=== PATIENT | female | born 1985 | race African-American/Black ===

== ENCOUNTER → 2019-09-01 | Outpatient (CLI) | payer OTHER | LOC: HYPER 09:26 | PROVIDERS: ATTEND Emergency Medicine Emergency Medical Services | DX: L97.812 Non-pressure chronic ulcer of other part of right lower leg with fat layer exposed (principal); L97.822 Non-pressure chronic ulcer of other part of left lower leg with fat layer exposed; L97.212 Non-pressure chronic ulcer of right calf with fat layer exposed; G40.909 Epilepsy, unspecified, not intractable, without status epilepticus; E66.01 Morbid (severe) obesity due to excess calories; E78.2 Mixed hyperlipidemia; I89.0 Lymphedema, not elsewhere classified; I73.9 Peripheral vascular disease, unspecified; I87.2 Venous insufficiency (chronic) (peripheral); R62.50 Unspecified lack of expected normal physiological development in childhood; R60.0 Localized edema; J45.40 Moderate persistent asthma, uncomplicated; K21.9 Gastro-esophageal reflux disease without esophagitis; F41.9 Anxiety disorder, unspecified; F31.9 Bipolar disorder, unspecified; Z68.44 Body mass index [BMI] 60.0-69.9, adult ==

== ENCOUNTER → 2019-09-07 | Outpatient (CLI) | payer OTHER | LOC: HYPER 06:34 | PROVIDERS: ATTEND Emergency Medicine | DX: L97.822 Non-pressure chronic ulcer of other part of left lower leg with fat layer exposed (principal); L97.212 Non-pressure chronic ulcer of right calf with fat layer exposed; I89.0 Lymphedema, not elsewhere classified; R60.0 Localized edema; E66.01 Morbid (severe) obesity due to excess calories; E78.2 Mixed hyperlipidemia; G40.909 Epilepsy, unspecified, not intractable, without status epilepticus; R62.50 Unspecified lack of expected normal physiological development in childhood; I87.2 Venous insufficiency (chronic) (peripheral); I73.9 Peripheral vascular disease, unspecified; J45.40 Moderate persistent asthma, uncomplicated; K21.9 Gastro-esophageal reflux disease without esophagitis; F41.9 Anxiety disorder, unspecified; F31.9 Bipolar disorder, unspecified; Z68.44 Body mass index [BMI] 60.0-69.9, adult ==

== ENCOUNTER → 2019-09-21 | Outpatient (CLI) | payer OTHER | LOC: HYPER 10:39 | PROVIDERS: ATTEND Emergency Medicine | DX: L97.822 Non-pressure chronic ulcer of other part of left lower leg with fat layer exposed (principal); L97.812 Non-pressure chronic ulcer of other part of right lower leg with fat layer exposed; L97.211 Non-pressure chronic ulcer of right calf limited to breakdown of skin; I87.2 Venous insufficiency (chronic) (peripheral); I89.0 Lymphedema, not elsewhere classified; R62.50 Unspecified lack of expected normal physiological development in childhood; R60.0 Localized edema; G40.909 Epilepsy, unspecified, not intractable, without status epilepticus; I73.9 Peripheral vascular disease, unspecified; K21.9 Gastro-esophageal reflux disease without esophagitis; E78.2 Mixed hyperlipidemia; K58.9 Irritable bowel syndrome, unspecified; J45.20 Mild intermittent asthma, uncomplicated; E66.01 Morbid (severe) obesity due to excess calories; F31.9 Bipolar disorder, unspecified; F41.9 Anxiety disorder, unspecified; Z68.44 Body mass index [BMI] 60.0-69.9, adult ==

== ENCOUNTER → 2019-09-28 | Outpatient (CLI) | payer OTHER | LOC: HYPER 15:11 | PROVIDERS: ATTEND Emergency Medicine | DX: L97.822 Non-pressure chronic ulcer of other part of left lower leg with fat layer exposed (principal); L97.812 Non-pressure chronic ulcer of other part of right lower leg with fat layer exposed; R62.50 Unspecified lack of expected normal physiological development in childhood; R60.0 Localized edema; I89.0 Lymphedema, not elsewhere classified; I87.2 Venous insufficiency (chronic) (peripheral); K21.9 Gastro-esophageal reflux disease without esophagitis; E78.2 Mixed hyperlipidemia; K58.9 Irritable bowel syndrome, unspecified; J45.20 Mild intermittent asthma, uncomplicated; E66.01 Morbid (severe) obesity due to excess calories; F41.9 Anxiety disorder, unspecified; F31.9 Bipolar disorder, unspecified; Z68.44 Body mass index [BMI] 60.0-69.9, adult ==

== ENCOUNTER → 2019-10-19 | Outpatient (CLI) | payer OTHER | LOC: HYPER 14:34 | PROVIDERS: ATTEND Emergency Medicine | DX: L97.822 Non-pressure chronic ulcer of other part of left lower leg with fat layer exposed (principal); L97.212 Non-pressure chronic ulcer of right calf with fat layer exposed; I89.0 Lymphedema, not elsewhere classified; R60.0 Localized edema; E66.01 Morbid (severe) obesity due to excess calories; E78.2 Mixed hyperlipidemia; G40.909 Epilepsy, unspecified, not intractable, without status epilepticus; R62.50 Unspecified lack of expected normal physiological development in childhood; I87.2 Venous insufficiency (chronic) (peripheral); J45.40 Moderate persistent asthma, uncomplicated; K21.9 Gastro-esophageal reflux disease without esophagitis; F41.9 Anxiety disorder, unspecified; F31.9 Bipolar disorder, unspecified; Z68.44 Body mass index [BMI] 60.0-69.9, adult ==

== ENCOUNTER → 2019-11-02 | Outpatient (CLI) | payer OTHER | LOC: HYPER 11:09 | PROVIDERS: ATTEND Specialist | DX: L97.822 Non-pressure chronic ulcer of other part of left lower leg with fat layer exposed (principal); L97.212 Non-pressure chronic ulcer of right calf with fat layer exposed; L03.115 Cellulitis of right lower limb; I89.0 Lymphedema, not elsewhere classified; I87.2 Venous insufficiency (chronic) (peripheral); E66.01 Morbid (severe) obesity due to excess calories; E78.2 Mixed hyperlipidemia; R62.50 Unspecified lack of expected normal physiological development in childhood; R60.0 Localized edema; G40.909 Epilepsy, unspecified, not intractable, without status epilepticus; J45.20 Mild intermittent asthma, uncomplicated; K21.9 Gastro-esophageal reflux disease without esophagitis; F41.9 Anxiety disorder, unspecified; F31.9 Bipolar disorder, unspecified; F90.9 Attention-deficit hyperactivity disorder, unspecified type; Z68.44 Body mass index [BMI] 60.0-69.9, adult ==

== ENCOUNTER → 2019-11-16 | Outpatient (CLI) | payer OTHER | LOC: HYPER 10:47 | PROVIDERS: ATTEND Emergency Medicine | DX: L97.212 Non-pressure chronic ulcer of right calf with fat layer exposed (principal); L03.115 Cellulitis of right lower limb; I89.0 Lymphedema, not elsewhere classified; I87.2 Venous insufficiency (chronic) (peripheral); R62.50 Unspecified lack of expected normal physiological development in childhood; R60.0 Localized edema; E66.01 Morbid (severe) obesity due to excess calories; E78.2 Mixed hyperlipidemia; G40.909 Epilepsy, unspecified, not intractable, without status epilepticus; I73.9 Peripheral vascular disease, unspecified; J45.40 Moderate persistent asthma, uncomplicated; K21.9 Gastro-esophageal reflux disease without esophagitis; F41.9 Anxiety disorder, unspecified; F31.9 Bipolar disorder, unspecified; F90.9 Attention-deficit hyperactivity disorder, unspecified type; Z68.44 Body mass index [BMI] 60.0-69.9, adult ==

== ENCOUNTER → 2019-11-30 | Outpatient (CLI) | payer OTHER | LOC: HYPER 08:53 | PROVIDERS: ATTEND Emergency Medicine | DX: L97.812 Non-pressure chronic ulcer of other part of right lower leg with fat layer exposed (principal); L97.821 Non-pressure chronic ulcer of other part of left lower leg limited to breakdown of skin; L97.211 Non-pressure chronic ulcer of right calf limited to breakdown of skin; L03.115 Cellulitis of right lower limb; I87.2 Venous insufficiency (chronic) (peripheral); I89.0 Lymphedema, not elsewhere classified; R62.50 Unspecified lack of expected normal physiological development in childhood; R60.0 Localized edema; G40.909 Epilepsy, unspecified, not intractable, without status epilepticus; K21.9 Gastro-esophageal reflux disease without esophagitis; E78.2 Mixed hyperlipidemia; K58.9 Irritable bowel syndrome, unspecified; J45.20 Mild intermittent asthma, uncomplicated; E66.01 Morbid (severe) obesity due to excess calories; F31.9 Bipolar disorder, unspecified; F41.9 Anxiety disorder, unspecified; Z68.44 Body mass index [BMI] 60.0-69.9, adult ==

== ENCOUNTER → 2019-12-14 | Outpatient (CLI) | payer OTHER | LOC: HYPER 13:00 | PROVIDERS: ATTEND Emergency Medicine | DX: L97.212 Non-pressure chronic ulcer of right calf with fat layer exposed (principal); L97.821 Non-pressure chronic ulcer of other part of left lower leg limited to breakdown of skin; G40.909 Epilepsy, unspecified, not intractable, without status epilepticus; E66.01 Morbid (severe) obesity due to excess calories; E78.2 Mixed hyperlipidemia; I89.0 Lymphedema, not elsewhere classified; I87.2 Venous insufficiency (chronic) (peripheral); J45.40 Moderate persistent asthma, uncomplicated; K21.9 Gastro-esophageal reflux disease without esophagitis; R62.50 Unspecified lack of expected normal physiological development in childhood; R60.0 Localized edema; F41.9 Anxiety disorder, unspecified; F31.9 Bipolar disorder, unspecified; F90.9 Attention-deficit hyperactivity disorder, unspecified type; Z68.44 Body mass index [BMI] 60.0-69.9, adult ==

== ENCOUNTER → 2020-01-04 | Outpatient (CLI) | payer OTHER | LOC: HYPER 12-28 18:34 | PROVIDERS: ATTEND Specialist | DX: L97.812 Non-pressure chronic ulcer of other part of right lower leg with fat layer exposed (principal); L97.821 Non-pressure chronic ulcer of other part of left lower leg limited to breakdown of skin; L97.211 Non-pressure chronic ulcer of right calf limited to breakdown of skin; I87.2 Venous insufficiency (chronic) (peripheral); R62.50 Unspecified lack of expected normal physiological development in childhood; R60.0 Localized edema; K21.9 Gastro-esophageal reflux disease without esophagitis; E78.2 Mixed hyperlipidemia; K58.9 Irritable bowel syndrome, unspecified; J45.20 Mild intermittent asthma, uncomplicated; E66.01 Morbid (severe) obesity due to excess calories; G40.909 Epilepsy, unspecified, not intractable, without status epilepticus; F41.9 Anxiety disorder, unspecified; F31.9 Bipolar disorder, unspecified; Z68.44 Body mass index [BMI] 60.0-69.9, adult ==

== ENCOUNTER → 2020-02-08 | Outpatient (CLI) | payer OTHER | LOC: HYPER 14:58 | PROVIDERS: ATTEND Emergency Medicine | DX: L97.212 Non-pressure chronic ulcer of right calf with fat layer exposed (principal); L97.821 Non-pressure chronic ulcer of other part of left lower leg limited to breakdown of skin; I89.0 Lymphedema, not elsewhere classified; I87.2 Venous insufficiency (chronic) (peripheral); R62.50 Unspecified lack of expected normal physiological development in childhood; R60.0 Localized edema; E66.01 Morbid (severe) obesity due to excess calories; E78.2 Mixed hyperlipidemia; G40.909 Epilepsy, unspecified, not intractable, without status epilepticus; J45.40 Moderate persistent asthma, uncomplicated; K21.9 Gastro-esophageal reflux disease without esophagitis; F41.9 Anxiety disorder, unspecified; F31.9 Bipolar disorder, unspecified; F90.9 Attention-deficit hyperactivity disorder, unspecified type; Z68.44 Body mass index [BMI] 60.0-69.9, adult ==

== ENCOUNTER → 2020-02-15 | Outpatient (CLI) | payer OTHER | LOC: HYPER 15:00 | PROVIDERS: ATTEND Emergency Medicine | DX: L97.212 Non-pressure chronic ulcer of right calf with fat layer exposed (principal); L97.821 Non-pressure chronic ulcer of other part of left lower leg limited to breakdown of skin; I89.0 Lymphedema, not elsewhere classified; I87.2 Venous insufficiency (chronic) (peripheral); R62.50 Unspecified lack of expected normal physiological development in childhood; R60.0 Localized edema; E66.01 Morbid (severe) obesity due to excess calories; E78.2 Mixed hyperlipidemia; G40.909 Epilepsy, unspecified, not intractable, without status epilepticus; I73.9 Peripheral vascular disease, unspecified; J45.20 Mild intermittent asthma, uncomplicated; K21.9 Gastro-esophageal reflux disease without esophagitis; F41.9 Anxiety disorder, unspecified; F31.9 Bipolar disorder, unspecified; F90.9 Attention-deficit hyperactivity disorder, unspecified type; Z68.44 Body mass index [BMI] 60.0-69.9, adult ==

== ENCOUNTER → 2020-03-07 | Outpatient (CLI) | payer OTHER | LOC: HYPER 14:16 | PROVIDERS: ATTEND Emergency Medicine | DX: L97.212 Non-pressure chronic ulcer of right calf with fat layer exposed (principal); L97.821 Non-pressure chronic ulcer of other part of left lower leg limited to breakdown of skin; I89.0 Lymphedema, not elsewhere classified; I87.2 Venous insufficiency (chronic) (peripheral); R62.50 Unspecified lack of expected normal physiological development in childhood; R60.0 Localized edema; E66.01 Morbid (severe) obesity due to excess calories; E78.2 Mixed hyperlipidemia; G40.909 Epilepsy, unspecified, not intractable, without status epilepticus; I73.9 Peripheral vascular disease, unspecified; J45.20 Mild intermittent asthma, uncomplicated; K21.9 Gastro-esophageal reflux disease without esophagitis; F41.9 Anxiety disorder, unspecified; F31.9 Bipolar disorder, unspecified; F90.9 Attention-deficit hyperactivity disorder, unspecified type; Z68.44 Body mass index [BMI] 60.0-69.9, adult ==

== ENCOUNTER → 2020-03-23 | Outpatient (CLI) | payer OTHER | LOC: HYPER 10:02 | PROVIDERS: ATTEND Emergency Medicine | DX: L97.212 Non-pressure chronic ulcer of right calf with fat layer exposed (principal); I89.0 Lymphedema, not elsewhere classified; I87.2 Venous insufficiency (chronic) (peripheral); R62.50 Unspecified lack of expected normal physiological development in childhood; R60.0 Localized edema; E66.01 Morbid (severe) obesity due to excess calories; E78.2 Mixed hyperlipidemia; G40.909 Epilepsy, unspecified, not intractable, without status epilepticus; I73.9 Peripheral vascular disease, unspecified; J45.20 Mild intermittent asthma, uncomplicated; K21.9 Gastro-esophageal reflux disease without esophagitis; F41.9 Anxiety disorder, unspecified; F31.9 Bipolar disorder, unspecified; F90.9 Attention-deficit hyperactivity disorder, unspecified type; Z68.44 Body mass index [BMI] 60.0-69.9, adult ==

== ENCOUNTER → 2020-04-21 | Outpatient (CLI) | payer OTHER | LOC: HYPER 09:59 | PROVIDERS: ATTEND Emergency Medicine Emergency Medical Services | DX: L97.212 Non-pressure chronic ulcer of right calf with fat layer exposed (principal); L97.812 Non-pressure chronic ulcer of other part of right lower leg with fat layer exposed; I87.2 Venous insufficiency (chronic) (peripheral); I89.0 Lymphedema, not elsewhere classified; R62.50 Unspecified lack of expected normal physiological development in childhood; R60.0 Localized edema; K21.9 Gastro-esophageal reflux disease without esophagitis; E78.2 Mixed hyperlipidemia; K58.9 Irritable bowel syndrome, unspecified; J45.20 Mild intermittent asthma, uncomplicated; E66.01 Morbid (severe) obesity due to excess calories; G40.909 Epilepsy, unspecified, not intractable, without status epilepticus; F41.9 Anxiety disorder, unspecified; F31.9 Bipolar disorder, unspecified; Z68.44 Body mass index [BMI] 60.0-69.9, adult ==

== ENCOUNTER → 2020-05-09 | Outpatient (CLI) | payer OTHER | LOC: HYPER 08:28 | PROVIDERS: ATTEND Emergency Medicine | DX: L97.212 Non-pressure chronic ulcer of right calf with fat layer exposed (principal); L97.812 Non-pressure chronic ulcer of other part of right lower leg with fat layer exposed; I87.2 Venous insufficiency (chronic) (peripheral); I89.0 Lymphedema, not elsewhere classified; R62.50 Unspecified lack of expected normal physiological development in childhood; R60.0 Localized edema; G40.909 Epilepsy, unspecified, not intractable, without status epilepticus; K21.9 Gastro-esophageal reflux disease without esophagitis; E78.2 Mixed hyperlipidemia; K58.9 Irritable bowel syndrome, unspecified; J45.20 Mild intermittent asthma, uncomplicated; J45.40 Moderate persistent asthma, uncomplicated; E66.01 Morbid (severe) obesity due to excess calories; F31.9 Bipolar disorder, unspecified; F41.9 Anxiety disorder, unspecified; Z68.44 Body mass index [BMI] 60.0-69.9, adult; Z79.899 Other long term (current) drug therapy ==

== ENCOUNTER → 2020-08-15 | Outpatient (CLI) | payer OTHER | LOC: HYPER 08:56 | PROVIDERS: ATTEND Emergency Medicine | DX: L97.212 Non-pressure chronic ulcer of right calf with fat layer exposed (principal); L97.812 Non-pressure chronic ulcer of other part of right lower leg with fat layer exposed; I87.2 Venous insufficiency (chronic) (peripheral); I89.0 Lymphedema, not elsewhere classified; R62.50 Unspecified lack of expected normal physiological development in childhood; R60.0 Localized edema; G40.909 Epilepsy, unspecified, not intractable, without status epilepticus; K21.9 Gastro-esophageal reflux disease without esophagitis; E78.2 Mixed hyperlipidemia; K58.9 Irritable bowel syndrome, unspecified; J45.40 Moderate persistent asthma, uncomplicated; E66.01 Morbid (severe) obesity due to excess calories; F31.9 Bipolar disorder, unspecified; F41.9 Anxiety disorder, unspecified; Z68.44 Body mass index [BMI] 60.0-69.9, adult ==

== ENCOUNTER → 2020-08-29 | Outpatient (CLI) | payer OTHER | LOC: HYPER 08:37 | PROVIDERS: ATTEND Emergency Medicine | DX: L97.212 Non-pressure chronic ulcer of right calf with fat layer exposed (principal); I87.2 Venous insufficiency (chronic) (peripheral); I89.0 Lymphedema, not elsewhere classified; R62.50 Unspecified lack of expected normal physiological development in childhood; R60.0 Localized edema; G40.909 Epilepsy, unspecified, not intractable, without status epilepticus; E66.01 Morbid (severe) obesity due to excess calories; E78.2 Mixed hyperlipidemia; J45.40 Moderate persistent asthma, uncomplicated; K21.9 Gastro-esophageal reflux disease without esophagitis; K58.9 Irritable bowel syndrome, unspecified; F31.9 Bipolar disorder, unspecified; F41.9 Anxiety disorder, unspecified; Z68.44 Body mass index [BMI] 60.0-69.9, adult ==

== ENCOUNTER → 2020-09-12 | Outpatient (CLI) | payer OTHER | LOC: HYPER 08:56 | PROVIDERS: ATTEND Emergency Medicine | DX: L97.212 Non-pressure chronic ulcer of right calf with fat layer exposed (principal); L97.821 Non-pressure chronic ulcer of other part of left lower leg limited to breakdown of skin; S80.812A Abrasion, left lower leg, initial encounter; I87.2 Venous insufficiency (chronic) (peripheral); I89.0 Lymphedema, not elsewhere classified; R60.0 Localized edema; R62.50 Unspecified lack of expected normal physiological development in childhood; G40.909 Epilepsy, unspecified, not intractable, without status epilepticus; E66.01 Morbid (severe) obesity due to excess calories; E78.2 Mixed hyperlipidemia; J45.40 Moderate persistent asthma, uncomplicated; K21.9 Gastro-esophageal reflux disease without esophagitis; K58.9 Irritable bowel syndrome, unspecified; F90.9 Attention-deficit hyperactivity disorder, unspecified type; F31.9 Bipolar disorder, unspecified; F41.9 Anxiety disorder, unspecified; Z68.44 Body mass index [BMI] 60.0-69.9, adult; X58.XXXA Exposure to other specified factors, initial encounter; Y93.89 Activity, other specified; Y92.89 Other specified places as the place of occurrence of the external cause; Y99.8 Other external cause status ==

== ENCOUNTER → 2020-09-20 | Outpatient (CLI) | payer OTHER | LOC: HYPER 09:50 | PROVIDERS: ATTEND Emergency Medicine | DX: L97.212 Non-pressure chronic ulcer of right calf with fat layer exposed (principal); L97.821 Non-pressure chronic ulcer of other part of left lower leg limited to breakdown of skin; S80.812D Abrasion, left lower leg, subsequent encounter; I87.2 Venous insufficiency (chronic) (peripheral); I89.0 Lymphedema, not elsewhere classified; R60.0 Localized edema; R62.50 Unspecified lack of expected normal physiological development in childhood; G40.909 Epilepsy, unspecified, not intractable, without status epilepticus; E66.01 Morbid (severe) obesity due to excess calories; E78.2 Mixed hyperlipidemia; I73.9 Peripheral vascular disease, unspecified; J45.40 Moderate persistent asthma, uncomplicated; K21.9 Gastro-esophageal reflux disease without esophagitis; K58.9 Irritable bowel syndrome, unspecified; F90.9 Attention-deficit hyperactivity disorder, unspecified type; F31.9 Bipolar disorder, unspecified; F41.9 Anxiety disorder, unspecified; Z68.44 Body mass index [BMI] 60.0-69.9, adult; X58.XXXD Exposure to other specified factors, subsequent encounter ==

== ENCOUNTER 2020-10-05 17:00 | Inpatient (IN) | payer OTHER ==
[~2020-10-05] VITALS: Ht 160 cm; Wt 158.8 kg
[2020-10-05 17:13] VITALS: BP 176/97
[2020-10-05 21:35] LABS: BASOPHILS 0.6 % (0.0-2.0); EOSINOPHILS 2.3 % (0.0-3.0); HEMATOCRIT 34.2 % (37.0-47.0); HEMOGLOBIN 11.3 gm/dL (12.0-15.0); MCH 24.2 pg (26.0-34.0); MCV 73.3 fL (80.0-100.0); MONOCYTES 7.5 % (1.0-8.0); PLATELET COUNT 320 thou/uL (150-400); POLYS 75.6 % (36.0-66.0); RBC 4.67 mil/uL (4.20-5.00); RDW 19.4 % (10.5-14.5); WBC 10.6 thou/uL (4.0-11.0)
[2020-10-05 21:55] LABS: CALCIUM 8.1 mg/dL (8.5-10.1); CREATININE 0.8 mg/dL (0.6-1.0); POTASSIUM 3.5 mmol/L (3.5-5.1)
[2020-10-05 21:59] LABS: ALBUMIN 2.6 g/dL (3.4-5.0); TOTAL BILIRUBIN 0.3 mg/dL (0.2-1.0); TOTAL PROTEIN 8.2 g/dL (6.4-8.2)
[2020-10-05 22:58] VITALS: BP 159/85
[2020-10-05 23:03] VITALS: BP 146/92
[2020-10-06 00:10] VITALS: BP 132/76
--- NOTE | 2020-10-06 03:05 | NUR ---
PT ADMITTED TO THE UNIT WITH C/O BLE CELLULITIS.PT IS A/O X3.PT USES A W/C AT HOME .PT IS X2 ASSIST .PT IS INCONTINENT.PT HAS PUREWICK IN PLACE.PT IS ON ROOM AIR.PT IS MED/SURG .ADMISSION DONE AND PT UNABLE TO SIGN CONSENT.MOTHER CALLED AND UPDATED ON PT STATUS.MOTHER WILL BRING HOME MEDS TO UPDATE.WILL CONTINUE TO MONITOR
--- NOTE | 2020-10-06 11:25 | NUR ---
PT ADMITTED RELATED TO CELLULITIS. CM REVIEWED CHART AND SPOKE WITH CARE TEAM. CM MET WITH PT AT BEDSIDE THIS DAY. PT APPEARED TO BE ALERT TO SELF. CM REVIEWED CHART AND SPOKE WITH CARE TEAM. PT INDICATED SHE RESIDES IN A HOUSE WITH HER MOTHER AND STEP FATHER. PT INDICATED SHE HAS A WC FOR HOME USE AND THAT HER MOM ASSISTS WITH TRANSFERS. SHE INDICATED THAT SHE HAS A NURSE NAMED MO WHO SEES HER IN THE HOME SETTING. CM CALLED PT'S MOTHER AMBER MENDOZA . SHE INDICATED THAT PT IS DEVELOPMENTALLY DISABLED AND THAT SHE HADN'T BEEN ABLE TO COME TO FLOOR YESTERDAY EVENING. SHE INDICATED THAT PT HAS A MANUAL WC, TOILET RISER, AND SHOWER BENCH FOR HOME USE. MOM INDICATED THAT SHE HAD ASSISTED PT WITH TRANSFERS FRAME TENDER AND THAT SHE HAD BEEN ABLE TO DO SO BY HERSELF BUT COULD BE A 2 PERSON TRANSFER. PT HAD BEEN ON SERVICE WITH [facility] AND HAD A NURSE NAMED MO U[place]. CARE TEAM INDICATED THAT PT'S MOTHER IS ALLOWED TO STAY WITH HER FOR THE DURATION OF HER STAY. PT'S PCP DR. YEVGENIY MARSH BEING SEEN BY DR. PRATER DURING STAY. MOTHER INDICATES DESIRE FOR PT TO RETURN HOME AND RESUME SERVICES WITH [facility] UPON DC. CM FOLLOWING REGARDING DC PLANNING.
[2020-10-06 12:19] VITALS: BP 155/71
[2020-10-06] MEDS ORDERED: ABILIFY10 MG PO (15:43)
[2020-10-06] MEDS ORDERED: PROTONIX40 M2 PO (15:44)
[2020-10-06] MEDS ORDERED: LORATIDINE 10 M10 M1 PO (15:45)
[2020-10-06] MEDS ORDERED: TOPAMAX100 MG PO (15:46)
[2020-10-06] MEDS ORDERED: ABILIFY MAINTE400 M1 IM (15:47)
[2020-10-06] MEDS ORDERED: COLACE 100 MG100 MG PO (15:48)
[2020-10-06] MEDS ORDERED: TRAZODONE HCL100 MG PO (15:49)
[2020-10-06] MEDS ORDERED: PROAIR HFA8.5 GM INH (15:50)
[2020-10-06] MEDS ORDERED: CYCLAFEM1 EAC1 PO (15:52)
[2020-10-06] MEDS ORDERED: IRON325 PO (15:52)
[2020-10-06] MEDS ORDERED: LORAZEPAM 1 MG T1 MG PO (16:03)
[2020-10-06] MEDS ORDERED: SEROPHENE50 MG PO (16:04)
[2020-10-06 19:47] VITALS: BP 123/74
--- NOTE | 2020-10-06 20:06 | NUR ---
I AGREE W/ ASSESSMENT PER KEVAN HERCULES.
--- NOTE | 2020-10-06 20:22 | NUR ---
ASSUMED CARE OF PATIENT AT SHIFT CHANGE. ASSESSMENT CHARTED. MEDICATIONS ADMINSTERED PER EMAR. VSS. PATIENT IS A&OX2-3 BUT DELAYED DUE TO MR. PATIENT DOES VOICE WHEN SHE IS WET BUT IS INCONT OF B&B. PATIENT MOM IS AT BEDSIDE AND WAS AUTHORIZED BY [employer]NAGEMENT TO BE ABLE TO STAY OVERNIGHT. MED REC COMPLETE AND DR. PRATER AWARE. PATIENT ORDERD LASIX BUT BOTH PARTIED WANTED TO WAIT UNTIL AFTER DINNER TO BE DIURESED. WOUND CARE DONE TO BLE AND SACRUM. BATH GIVEN THIS DAY. PATIENT STARTED ON ABX. MONITORING PATIENT ON PROGRESS. ENDORSED TO ONCOMING NURSE
--- NOTE | 2020-10-07 03:08 | NUR ---
PT CARE ASSUMED WITH PT IN BED WITH MOTHER AT THE BEDSIDE.PT IS A/O X2.PT IS A SPECIAL AND MOTHER HAS BEEN ALLOWED TO SPEND THE NIGHT PER THE DAY NURSE.PT BLE WRAPPED AND NOT DRAINING.PT IS INCONTINENT.PT TAKE MEDS WHOLE WITH NO ISSUES.PT IS ON ROOM AIR.WILL CONTINUE TO MONITOR
[2020-10-07 08:51] VITALS: BP 146/84
[2020-10-07 15:15] VITALS: BP 117/66
--- NOTE | 2020-10-07 17:02 | NUR ---
PICC PLACED FOR VANCO/CELLULITIS
--- NOTE | 2020-10-07 17:22 | NUR ---
PATIENT A&OX3 THIS DAY AND ABLE TO VOICE NEEDS. TOLERATING MEDICATIONS AND PO INTAKE WELL; ENCOURAGED TO DRINK MORE FLUIDS. IV INFILTRATED THIS SHIFT AND WAS D/C'D PROVIDER NOTIFIED AND AGREED TO LINE PLACEMENT. PICC WAS PLACED BY IV TEAM INFUSING VANCOMYCIN. LEGS REWRAPPED THIS AM W NO DRAINAGE; NOTABLY GETTING BETTER. Q2 TURNS OFFERED. MOTHER AT BEDSIDE. DENIES PAIN. NO FURTHER ISSUES NOTED THIS SHIFT. WILL CONTINUE FREQUENT MONITORING ON PATIENT
[2020-10-07 20:50] VITALS: BP 142/84
--- NOTE | 2020-10-08 02:26 | NUR ---
ASSUMED PT CARE AT 1905. PT IS ALERT AND ORIENTED X4. PT'S MED IS AT BEDSIDE. PT USES CALL LIGHT FOR ASSISTANCE WITH THE BEDPAN. PT IS NOW USING EXTERNAL CATH. PT HAS SINGLE LUMEN TO THE CHRIS WITH HAS NO SIGN OF SWELLING AND REDNESS. PT CAN SOMETIMES BE INAUDIBLE WHEN VOICING NEEDS. PT IS TOLERATING RA. NO VISIBLE SIGN OF DISTRESS WAS NOTED. FALL PRECAUTIONS IN PLACE WITH CALL LIGHT WITHIN REACH. WILL CONTINUE TO MONITOR.
[2020-10-08 12:26] VITALS: BP 146/95
--- NOTE | 2020-10-08 14:01 | NUR ---
Pt is developmentally delayed. Lives at home with parents. She is on RA sating 100%. VSS no c/o pain. Admitting diagnosis of BLE cellulitus. She has a right upper arm cephalic PICC running IV ABX. She has been using a periwick and had a small soft BM today. Her BLE wounds are not draining and are wrapped in ar wrapped. The left foot has a necrotic area on bottom heel. She is eating well and remains a high fall risk. Fall precautions are in place and educated on how to use the call light. Will monitor until the end of the shift.
[2020-10-08 19:54] VITALS: BP 141/78
--- NOTE | 2020-10-09 02:21 | NUR ---
ASSUMED PT CARE AT 1920. PT IS ALERT AND ORIENTED.PT HAD MOM AT BEDSIDE. PT IS ABLE TO VOCALIZE NEEDS BUT CAN SOMETIMES BE INAUDIBLE. PT CAN SOMETIMES BE INCONTINENT WITH BLADDER BUT USES BEDPAN FOR BM. PT HAS A SINLGE LUMEN PICC TO THE CHRIS WITH NO SIGN OF REDNESS OR SWELLING. PT HAS ELISA WRAPS ON BLE. PT DID NOT EXPRESS ANY CONCERNS AND NO VISIBLE SIGN OF DISTRESS WAS NOTED. BED ON LOWEST LOCKED POSITIOMN WITH BED ALARM ON AND CALL LIGHT WITHUN REACH. WILL CONTINUE TO MONITOR.
[2020-10-09 11:30] LABS: ABSOLUTE NEUTROPHILS 6.8 thou/uL (1.4-8.2); BASOPHILS 0.6 % (0.0-2.0); EOSINOPHILS 2.7 % (0.0-3.0); HEMATOCRIT 36.5 % (37.0-47.0); HEMOGLOBIN 11.6 gm/dL (12.0-15.0); LYMPHOCYTES 17.6 % (24.0-44.0); MCH 23.8 pg (26.0-34.0); MCHC 31.7 g/dL (28.0-37.0); MCV 75.1 fL (80.0-100.0); MONOCYTES 8.9 % (1.0-8.0); PLATELET COUNT 300 thou/uL (150-400); POLYS 70.2 % (36.0-66.0); RBC 4.86 mil/uL (4.20-5.00); RDW 20.2 % (10.5-14.5); WBC 9.6 thou/uL (4.0-11.0)
[2020-10-09 11:42] LABS: CALCIUM 8.4 mg/dL (8.5-10.1); CREATININE 0.8 mg/dL (0.6-1.0); POTASSIUM 4.1 mmol/L (3.5-5.1)
--- NOTE | 2020-10-09 12:14 | NUR ---
High risk screening r/t excessive BMI and wound present. Noted with BMI 62, extreme class III obesity. Pt with mild cog delay, lives at home with parents. She stated no hx wt changes; reports good appetite. Intakes 100% most meals on regular diet. Currently on IV vanco for cellulitis. Lasix in place-1+ edema to BLE. Wound care consulted 10/09 for BLE blisters and opena areas? r/t current dx. With good dietary intakes and no hx wt changes, place at low nutrition risk at this time.
[2020-10-09 13:06] LABS: ANISOCYTOSIS 1+; HYPOCHROMASIA 1+
--- NOTE | 2020-10-09 16:44 | NUR ---
VAT ASSESSED PT RIGHT UPPER ARM PICC EARLY IN DAY AND CONCURRED THAT PT NEEDS ALTEPLASE, NO BLOOD RETURN. NOTIFIED AT 1435 THAT ALTEPLASE AVAIL FROM PHARMACY. ALTEPLASE, 2G/2.2ML STERILE WATER TO PICC AT 1445. EDUCATED JOSE RAMON HODGE, HOW TO CHECK FOR BLOOD RETURN IN 1 HOUR, WASTE 5ML, THEN FLUSH WITH 10ML NS.
--- NOTE | 2020-10-09 16:48 | NUR ---
PT IS ON IV VANC. CARE TEAM ORDERED PT AND OT TO SEE PT. CM FOLLOWING REGARDING DC PLANNING.
--- NOTE | 2020-10-09 20:23 | NUR ---
PATIENT REMAINS A&OX3 AND PLEASANT. ATEPLACE ON PICC FOR LAB DRAWS; VANCO INFUSING NOW. WORKED W PT/OT AND DID WELL. STILL FREQUENTLY VOIDING. APPETITE ADEQUATE; PER MD LEGS LEFT OPEN TO AIR. PRAFO BOOTS ORDERED; HEELS ELEVATED ON PILLOWS UNTIL DELIVERY. ENDORSED TO ONCOMING NURSE
--- NOTE | 2020-10-10 03:44 | NUR ---
ASSUMED PT CARE AT 1905. PT IS ALERT AND OREINTED x3. PT C/O PAIN TO THE L KNEE AND ORDER WAS PLACED FOR PAIN MED. MOM IS AT THE BEDSIDE. PT IS ABLE TO VERBALIZE HER NEED BUT DOES NOT USE CALLL LIGHT. PT CAN BE INCONTINET AT TIMES BUT USES BEDPAN. PT IS TOLERATING RA. PT HAS PICC WITH SINGLE LUMEN TO THE CHRIS WITH NO SIGN OF SWELLING AND REDNESS. FALL PREACUTIONS IN PLACE WITH CALL LIGHT WITHIN REACH. WILL CONTINUE TO MONITOR.
[2020-10-10 07:35] VITALS: BP 111/75
[2020-10-10] MEDS ORDERED: CEPHALEXIN500 MG PO (07:47)
--- NOTE | 2020-10-10 10:10 | NUR ---
Pt is AXOX2-3 can not ambulate. Pending discharge for Dr. Barrera to [facility] regarding left heel. Contacted Podietry office spoke with Peggy at 10:[address] Lerner is covering for Dr. Barrera. Let them know about needed consult. Stated they do not see Medicaid patients. Trying to find out what Ins. pt has so Dr. Lerner will come to see pt. Pt. remains incontinent of B/B. Fall precautions in place . Call light within reach,
[2020-10-10 11:41] VITALS: BP 111/75
--- NOTE | 2020-10-10 12:20 | HC ---
[facility] [place] [address] CONSULTATION Name: SILVINA VITAL Room #: 460-P ADM IN M.R.#: [id number] Admission: 10/05/20 Attend Phys: Mario Johnson MD, [facility] Discharge: Date of : 89 Report #: [id number] THIS REPORT FOR: cc: Campos Calvin Donald L. DO Stephens, Thad A. MD ~ DATE OF SERVICE: 10/09/2020 WOUND CARE CONSULTATION PERSONAL PHYSICIAN: Campos Calvin DO CHIEF COMPLAINT: Bilateral lower extremity cellulitis. HISTORY OF PRESENT ILLNESS: This is a 35-year-old black female, who I have been following in the Wound Clinic for chronic lymphedema and recurrent cellulitis of bilateral lower extremities. Approximately 10 days ago, I saw the patient and the patient had increasing erythema, warmth, and some tenderness to the bilateral lower extremities. The patient was started on Levaquin as an outpatient. The patient was then seen back in the clinic last Friday and cellulitis appeared to be getting worse. The patient also had an ulceration on the plantar aspect of her left foot, which was dry and intact eschar and at that time, it was felt that the patient had failed outpatient treatment. I spoke with Dr. Johnson, who was installation helper for Campos Calvin, who will admit the patient and the patient was admitted for IV antibiotics and diuresis. The patient has done well. The patient denies any pain at this time. PAST MEDICAL HISTORY: Significant for mental retardation, bipolar affective disorder, asthma, acid reflux, chronic lower extremity lymphedema with recurrent cellulitis. CURRENT MEDICATIONS: Multiple. I reviewed the patient's medication list. DRUG ALLERGIES: CEFACLOR AND AUGMENTIN. SOCIAL HISTORY: The patient does not smoke or drink alcohol. Currently lives with her mother, who is her primary caregiver. FAMILY HISTORY: Unobtainable because of the patient's mild mental retardation. REVIEW OF SYSTEMS: Unobtainable because of the patient's mild mental retardation. PHYSICAL EXAMINATION: VITAL SIGNS: Temperature 37.3, pulse 99, respirations 18, and BP 141/78. GENERAL: This is an awake and oriented x1 person, but not place or time, [facility] [address] [place] [address] CONSULTATION Name: SILVINA VITAL Room #: 460-P [facility] IN [facility].#: [id number] Admission: 10/05/20 Attend Phys: Mario Johnson MD, FAAF Discharge: Date of : 89 Report #: [id number] female who is in no obvious distress. HEENT: Normocephalic, atraumatic. Mucous membranes are somewhat dry. Pupils are round. Sclerae white. NECK: Without JVD. LUNGS: Slight diminished breath sounds heard throughout. HEART: Regular. ABDOMEN: Obese, soft, nontender. EXTREMITIES: The patient has a 2-3+ edema with mild erythema and warmth, but minimal tenderness. There is some area of moisture on bilateral lower extremities, right greater than left. Distal pulses are intact. NEUROLOGIC: Cranial nerves II-XII grossly intact. Motor and sensory are grossly intact. LABORATORY DATA: White count 9.6, hemoglobin 11.6, BUN 8, creatinine 0.8, and albumin 2.6. IMPRESSION: 1. Chronic bilateral lower extremity lymphedema with recurrent cellulitis, overall improving with IV antibiotics. 2. Chronic ulceration, plantar aspect of the left foot with dry and intact eschar. 3. Morbid obesity. 4. Developmental delay with generalized debility. 5. Protein calorie malnutrition -- moderate with albumin 2.6. PLAN: At this time, we will start Betadine to the foot ulceration on the left heel, keep this dry and intact. We will have Tubigrips placed on bilateral lower extremities. We will have the patient elevate her extremities as much as possible. Continue with the IV antibiotics as well as the patient is on oral Lasix and continue all other current medications. PT, OT has seen the patient and will assist with strengthening. Continue all other current medications. <ELECTRONICALLY SIGNED> By: Meir Skinner MD 10/10/20 1220 [id number] Meir Skinner MD /nt
[2020-10-10 12:33] VITALS: BP 111/75
[2020-10-10 13:56] VITALS: BP 111/75
[2020-10-10 15:30] VITALS: BP 113/79
--- NOTE | 2020-10-10 15:46 | NUR ---
CARE TEAM INDICATED THAT PT IS MEDICALLY STABLE TO DC HOME THIS DAY. POD HAD BEEN CONSULTED AND THEY INDICATED THAT THEY AREN'T ABLE TO SEE PT WHILE IN HOUSE THEN CALLED BACK ADN SAID THEY WOULD. CM FAXED ORDERS FOR RESUMPTION OF HH TO [facility]. PT'S MOTHER WILL PROVIDE TRANSPORT HOME ONCE MEDICALLY STABLE LIKELY ONCE POD SEES HER THIS AFTERNOON.
--- NOTE | 2020-10-18 07:26 | D ---
[facility] [place] [address] DISCHARGE SUMMARY Name: SILVINA VITAL Room #: 460-P [facility] IN M.R.#: [id number] Admission: 10/05/20 Attend Phys: Mario Johnson MD, FAAF Discharge: 10/10/20 Date of : 89 Report #: [id number] THIS REPORT FOR: cc: Campos Calvin,Campos Curran DO ~ cc: Meir Skinner MD, ____ ____ DATE OF SERVICE: 10/10/2020 HISTORY OF PRESENT ILLNESS: This 35-year-old overweight black female was admitted through Dr. Skinner' office with cellulitis of both legs, severe venous stasis and with ulcerations. PAST MEDICAL HISTORY: Included multiple episodes of cellulitis, followed by Dr. Skinner in his wound clinic, morbid obesity, bipolar affective disorder, developmental delay, acid reflux. MEDICATIONS ON ADMISSION: Lasix and topiramate. HOSPITAL COURSE: The patient was admitted by Dr. Johnson, who was covering for me. PHYSICAL EXAMINATION: GENERAL: She was overweight, but in no distress. HEAD AND NECK: Negative. LUNGS: Clear. CARDIOVASCULAR: Negative. ABDOMEN: Obese, but soft and nontender. EXTREMITIES: Revealed cellulitis of both legs, significantly worse on the left with multiple venous ulcers. Furthermore of the left heel, there was a pressure ulcer with bulla that was nonfluctuant and nontender. LABORATORY DATA: White count was 10,000, hemoglobin 11.3. Lactate normal. Sodium 140, potassium 3.5, CO2 of 22, BUN 9, creatinine 0.8, estimated GFR 100, glucose 105, calcium 8.1. GOT high at 74, GPT high at 81. Total protein normal, albumin low at 2.6. Chest x-ray showed patchy atelectasis in the bases from poor inspiration. The patient was admitted on IV vancomycin with therapeutic trough levels obtained. She was seen in consult by Dr. Meir Skinner of Wound Care and Dr. Tirso Lerner of Podiatry. Her edema improved, cellulitis resolved. Stasis ulcers resolved. The bulla on her left foot was examined by Dr. Lerner. He was able to express nonpurulent fluid from the bulla and flushed with copious amounts of saline solution. He recommended Betadine daily, postop surgical shoe, 4 x 4 gauze and Kerlix around the foot daily and minimize ambulation on it. [address] [address] DISCHARGE SUMMARY Name: SILVINA VITAL Room #: [facility] [id number] Admission: 10/05/20 Attend Phys: Mario Johnson MD, FAAF Discharge: 10/10/20 Date of : 89 Report #: [id number] On 10/10/2020, the patient was clinically stable, has stable vital signs. Her hemoglobin 11.6, white count 9600. Sodium 143, potassium 4.1, CO2 of 24, BUN 8, creatinine 0.8, estimated GFR 100. DISCHARGE MEDICATIONS: She was stable for discharge home on Bumex 1 mg daily, pantoprazole 40 mg daily, Abilify 10 mg daily, loratadine 10 mg daily, topiramate 50 mg b.i.d., Abilify ____ 400 mg every 3 weeks, docusate 100 mg p.r.n. constipation, trazodone 100 mg at bedtime, norethindrone-ethinyl estradiol 1 at bedtime, ferrous sulfate 325 mg at bedtime, lorazepam 1 mg b.i.d. p.r.n. anxiety, clomiphene 50 mg b.i.d. p.r.n. anxiety, cephalexin 500 mg q.i.d. She will follow up with Dr. Skinner in the wound clinic and myself within 2 weeks. FINAL DIAGNOSES: 1. Cellulitis of both lower legs. 2. Venous stasis ulcers to both lower legs. 3. Bulla, plantar aspect of left foot. 4. Peripheral venous insufficiency. 5. Morbid obesity. 6. Moderate protein-calorie malnutrition. 7. Gastroesophageal reflux disease without esophagitis. 8. developmental delay. 9. Bipolar disorder. <ELECTRONICALLY SIGNED> By: Campos Calvin DO 10/18/20 0726 [id number] Campos Calvin DO /nt
--- NOTE | 2020-10-25 15:38 | H ---
[facility] [place] [address] HISTORY AND PHYSICAL Name: SILVINA VITAL Room #: 460-P [facility] IN M.R.#: [id number] Admission: 10/05/20 Attend Phys: Mario Johnson MD, FAAF Discharge: 10/10/20 Date of : 89 Report #: [id number] THIS REPORT FOR: cc: Campos Calvin Donald L. DO Knox, Douglas MD FAA FACEP ~ cc: Campos Calvin DO DATE OF SERVICE: 10/06/2020 CHIEF COMPLAINT: Cellulitis. HISTORY OF PRESENT ILLNESS: The patient is a 35-year-old black female, patient of Dr. Campos Calvin, is undergoing wound care treatments with Dr. Meir Skinner. She developed an advancing cellulitis that now requires inpatient hospitalization for IV antibiotics and diligent wound care. PAST MEDICAL HISTORY: Mild mental retardation, bipolar affective disorder, asthma, acid reflux, venous stasis with chronic bilateral lower extremity wounds. MEDICATIONS: Topiramate, Lasix 40 mg daily, started on vancomycin. ALLERGIES: AMOXICILLIN, CEFACLOR AND CLAVULANIC ACID. SOCIAL HISTORY: Cared for by her mother. Nonsmoker, nondrinker. REVIEW OF SYSTEMS: GENERAL: No fever, chills, nausea, vomiting, diarrhea. EYES: No visual changes. ENT: No problems with hearing as well as sensation of smell. CARDIOVASCULAR: No chest pain or palpitations. RESPIRATORY: No difficulty breathing. GASTROINTESTINAL: No abdominal pain. GENITOURINARY: No problems urinating. MUSCULOSKELETAL: She is poorly mobile and obese. NEUROLOGIC: Some element of mental retardation. PSYCH: Not currently depressed. DERM: Stasis changes with cellulitis of both legs, worse on the left and multiple decubitus ulcers. LABORATORY EVALUATION: CBC: White count is 10.6, hemoglobin 11.3, hematocrit 34.2, platelets 320,000. Lactate 1.6. Serum chemistries: Sodium 140, potassium 3.5, chloride 109, CO2 of 23, anion gap 8, BUN 9, creatinine 0.8, estimated glomerular filtration rate is 100, glucose 105, calcium is 8.1, total bilirubin 0.3, AST 74, ALT 81, alkaline phosphatase 77, total protein 8.2, [address] [address] HISTORY AND PHYSICAL Name: SILVINA VITAL Room #: 460-[facility]#: [id number] Admission: 10/05/20 Attend Phys: Mario Johnson MD, FAAF Discharge: 10/10/20 Date of : 89 Report #: [id number] albumin 2.6. Chest x-ray done in the Emergency Department shows mild patchy bibasilar atelectasis. No evidence of pneumothorax or significant pleural effusion. IMPRESSION: Cellulitis, both legs and feet; lower extremity decubiti/wounds; mild mental retardation; bipolar affective disorder; asthma; gastroesophageal reflux disease; venous stasis with chronic bilateral leg wounds. PLAN: Admit to the hospital. Diligent wound care. Consult to the senior accounts payable specialist, Dr. Meir Skinner. Add all IV antibiotics with vancomycin. Follow levels. Restart home medications. Serial laboratory. <ELECTRONICALLY SIGNED> By: Mario Johnson MD, MALACHI, FACEP 10/25/20 1538 [id number] Mario Johnson MD, MALACHI, FACEP /nt
== END 2020-10-10 19:08 | disposition home health service (06) | DRG 603 ==
LOC: ER 17:00 → 4W 22:55 → EROBS 22:55 → 4W 23:09
PROVIDERS: Emergency Medicine; Internal Medicine; ADMIT Family Medicine; ATTEND Family Medicine
DX: L03.116 Cellulitis of left lower limb (principal); Z68.44 Body mass index [BMI] 60.0-69.9, adult; E44.0 Moderate protein-calorie malnutrition; K21.9 Gastro-esophageal reflux disease without esophagitis; F31.9 Bipolar disorder, unspecified; E66.01 Morbid (severe) obesity due to excess calories; L97.529 Non-pressure chronic ulcer of other part of left foot with unspecified severity; L03.115 Cellulitis of right lower limb; I87.8 Other specified disorders of veins; I87.2 Venous insufficiency (chronic) (peripheral); L89.620 Pressure ulcer of left heel, unstageable; J45.909 Unspecified asthma, uncomplicated; Z79.899 Other long term (current) drug therapy; Z88.1 Allergy status to other antibiotic agents
CPT/HCPCS: 10040; 27000

== ENCOUNTER → 2020-10-05 | Outpatient (CLI) | payer OTHER ==
[~2020-10-05] MED LIST: ABILIFY MAINTE400 M1 IM; ABILIFY10 MG PO; COLACE 100 MG100 MG PO; CYCLAFEM1 EAC1 PO; IRON325 PO; LORATIDINE 10 M10 M1 PO; LORAZEPAM 1 MG T1 MG PO; PROAIR HFA8.5 GM INH; PROTONIX40 M2 PO; SEROPHENE50 MG PO; TOPAMAX100 MG PO; TRAZODONE HCL100 MG PO
== END ==
LOC: HYPER 08:06
PROVIDERS: ATTEND Emergency Medicine
DX: L89.626 Pressure-induced deep tissue damage of left heel (principal); L97.211 Non-pressure chronic ulcer of right calf limited to breakdown of skin; S80.812D Abrasion, left lower leg, subsequent encounter; I87.2 Venous insufficiency (chronic) (peripheral); I89.0 Lymphedema, not elsewhere classified; R62.50 Unspecified lack of expected normal physiological development in childhood; R60.0 Localized edema; G40.909 Epilepsy, unspecified, not intractable, without status epilepticus; K21.9 Gastro-esophageal reflux disease without esophagitis; F31.9 Bipolar disorder, unspecified; E78.2 Mixed hyperlipidemia; K58.9 Irritable bowel syndrome, unspecified; J45.20 Mild intermittent asthma, uncomplicated; J45.40 Moderate persistent asthma, uncomplicated; E66.01 Morbid (severe) obesity due to excess calories; F41.9 Anxiety disorder, unspecified; Z68.44 Body mass index [BMI] 60.0-69.9, adult; Z79.899 Other long term (current) drug therapy; X58.XXXD Exposure to other specified factors, subsequent encounter

== ENCOUNTER → 2020-10-24 | Outpatient (CLI) | payer OTHER ==
[~2020-10-24] MED LIST changes: +CEPHALEXIN500 MG PO
== END ==
LOC: HYPER 08:36
PROVIDERS: ATTEND Emergency Medicine
DX: L89.626 Pressure-induced deep tissue damage of left heel (principal); L97.211 Non-pressure chronic ulcer of right calf limited to breakdown of skin; S80.812D Abrasion, left lower leg, subsequent encounter; I87.2 Venous insufficiency (chronic) (peripheral); I89.0 Lymphedema, not elsewhere classified; R62.50 Unspecified lack of expected normal physiological development in childhood; R60.0 Localized edema; E66.01 Morbid (severe) obesity due to excess calories; G40.909 Epilepsy, unspecified, not intractable, without status epilepticus; I73.9 Peripheral vascular disease, unspecified; E78.2 Mixed hyperlipidemia; J45.20 Mild intermittent asthma, uncomplicated; J45.40 Moderate persistent asthma, uncomplicated; K21.9 Gastro-esophageal reflux disease without esophagitis; K58.9 Irritable bowel syndrome, unspecified; F41.9 Anxiety disorder, unspecified; F31.9 Bipolar disorder, unspecified; F90.9 Attention-deficit hyperactivity disorder, unspecified type; Z68.44 Body mass index [BMI] 60.0-69.9, adult; X58.XXXD Exposure to other specified factors, subsequent encounter

== ENCOUNTER → 2020-11-14 | Outpatient (CLI) | payer OTHER | LOC: HYPER 08:07 | PROVIDERS: ATTEND Emergency Medicine | DX: L89.626 Pressure-induced deep tissue damage of left heel (principal); L97.211 Non-pressure chronic ulcer of right calf limited to breakdown of skin; S80.812D Abrasion, left lower leg, subsequent encounter; I87.2 Venous insufficiency (chronic) (peripheral); I89.0 Lymphedema, not elsewhere classified; R62.50 Unspecified lack of expected normal physiological development in childhood; R60.0 Localized edema; E66.01 Morbid (severe) obesity due to excess calories; G40.909 Epilepsy, unspecified, not intractable, without status epilepticus; I73.9 Peripheral vascular disease, unspecified; E78.2 Mixed hyperlipidemia; J45.40 Moderate persistent asthma, uncomplicated; K21.9 Gastro-esophageal reflux disease without esophagitis; K58.9 Irritable bowel syndrome, unspecified; F41.9 Anxiety disorder, unspecified; F31.9 Bipolar disorder, unspecified; F90.9 Attention-deficit hyperactivity disorder, unspecified type; Z68.44 Body mass index [BMI] 60.0-69.9, adult; X58.XXXD Exposure to other specified factors, subsequent encounter ==

== ENCOUNTER → 2020-11-29 | Outpatient (CLI) | payer OTHER | LOC: HYPER 07:59 | PROVIDERS: ATTEND Emergency Medicine | DX: L89.623 Pressure ulcer of left heel, stage 3 (principal); I87.2 Venous insufficiency (chronic) (peripheral); I89.0 Lymphedema, not elsewhere classified; L84 Corns and callosities; R62.50 Unspecified lack of expected normal physiological development in childhood; R60.0 Localized edema; G40.909 Epilepsy, unspecified, not intractable, without status epilepticus; I73.9 Peripheral vascular disease, unspecified; K21.9 Gastro-esophageal reflux disease without esophagitis; E78.2 Mixed hyperlipidemia; K58.9 Irritable bowel syndrome, unspecified; J45.40 Moderate persistent asthma, uncomplicated; E66.01 Morbid (severe) obesity due to excess calories; F90.9 Attention-deficit hyperactivity disorder, unspecified type; F31.9 Bipolar disorder, unspecified; F41.9 Anxiety disorder, unspecified; Z68.44 Body mass index [BMI] 60.0-69.9, adult; Z79.899 Other long term (current) drug therapy ==

== ENCOUNTER → 2020-12-13 | Outpatient (CLI) | payer OTHER | LOC: HYPER 07:55 | PROVIDERS: ATTEND Emergency Medicine | DX: L89.623 Pressure ulcer of left heel, stage 3 (principal); I87.2 Venous insufficiency (chronic) (peripheral); I89.0 Lymphedema, not elsewhere classified; R62.50 Unspecified lack of expected normal physiological development in childhood; R60.0 Localized edema; G40.909 Epilepsy, unspecified, not intractable, without status epilepticus; I73.9 Peripheral vascular disease, unspecified; K21.9 Gastro-esophageal reflux disease without esophagitis; E78.2 Mixed hyperlipidemia; K58.9 Irritable bowel syndrome, unspecified; J45.20 Mild intermittent asthma, uncomplicated; E66.01 Morbid (severe) obesity due to excess calories; F31.9 Bipolar disorder, unspecified; F90.9 Attention-deficit hyperactivity disorder, unspecified type; F41.9 Anxiety disorder, unspecified; Z68.44 Body mass index [BMI] 60.0-69.9, adult; Z79.899 Other long term (current) drug therapy ==

== ENCOUNTER → 2020-12-27 | Outpatient (CLI) | payer OTHER | LOC: HYPER 08:27 | PROVIDERS: ATTEND Emergency Medicine | DX: L89.623 Pressure ulcer of left heel, stage 3 (principal); L84 Corns and callosities; I87.2 Venous insufficiency (chronic) (peripheral); I89.0 Lymphedema, not elsewhere classified; R62.50 Unspecified lack of expected normal physiological development in childhood; R60.0 Localized edema; G40.909 Epilepsy, unspecified, not intractable, without status epilepticus; I73.9 Peripheral vascular disease, unspecified; K21.9 Gastro-esophageal reflux disease without esophagitis; E78.2 Mixed hyperlipidemia; K58.9 Irritable bowel syndrome, unspecified; J45.20 Mild intermittent asthma, uncomplicated; E66.01 Morbid (severe) obesity due to excess calories; F31.9 Bipolar disorder, unspecified; F90.9 Attention-deficit hyperactivity disorder, unspecified type; F41.9 Anxiety disorder, unspecified; Z68.44 Body mass index [BMI] 60.0-69.9, adult ==

== ENCOUNTER → 2021-01-17 | Outpatient (CLI) | payer OTHER | LOC: HYPER 08:23 | PROVIDERS: ATTEND Emergency Medicine | DX: L89.623 Pressure ulcer of left heel, stage 3 (principal); L84 Corns and callosities; I87.2 Venous insufficiency (chronic) (peripheral); I89.0 Lymphedema, not elsewhere classified; R62.50 Unspecified lack of expected normal physiological development in childhood; R60.0 Localized edema; G40.909 Epilepsy, unspecified, not intractable, without status epilepticus; I73.9 Peripheral vascular disease, unspecified; E78.2 Mixed hyperlipidemia; J45.20 Mild intermittent asthma, uncomplicated; K21.9 Gastro-esophageal reflux disease without esophagitis; K58.9 Irritable bowel syndrome, unspecified; E66.01 Morbid (severe) obesity due to excess calories; F31.9 Bipolar disorder, unspecified; F90.9 Attention-deficit hyperactivity disorder, unspecified type; F41.9 Anxiety disorder, unspecified; Z68.44 Body mass index [BMI] 60.0-69.9, adult ==

== ENCOUNTER → 2021-02-07 | Outpatient (CLI) | payer OTHER | LOC: HYPER 08:20 | PROVIDERS: ATTEND Emergency Medicine | DX: L89.623 Pressure ulcer of left heel, stage 3 (principal); L84 Corns and callosities; I87.2 Venous insufficiency (chronic) (peripheral); I89.0 Lymphedema, not elsewhere classified; R62.50 Unspecified lack of expected normal physiological development in childhood; R60.0 Localized edema; G40.909 Epilepsy, unspecified, not intractable, without status epilepticus; I73.9 Peripheral vascular disease, unspecified; E78.2 Mixed hyperlipidemia; J45.20 Mild intermittent asthma, uncomplicated; K21.9 Gastro-esophageal reflux disease without esophagitis; K58.9 Irritable bowel syndrome, unspecified; E66.01 Morbid (severe) obesity due to excess calories; F31.9 Bipolar disorder, unspecified; F90.9 Attention-deficit hyperactivity disorder, unspecified type; F41.9 Anxiety disorder, unspecified; Z68.44 Body mass index [BMI] 60.0-69.9, adult ==